=== PATIENT | male | born 1950 | race Caucasian/White ===

== ENCOUNTER 2018-08-27 08:43 | Inpatient (IN) | payer OTHER, MEDICARE ==
[2018-08-20 11:05] LABS: BILIRUBIN,URINE NEGATIVE (NEGATIVE); BLOOD, URINE TRACE (NEGATIVE); CLARITY/URINE CLEAR (CLEAR); COLOR,URINE YELLOW (YELLOW); GLUCOSE,URINE NEGATIVE (NEGATIVE); KETONES,URINE NEGATIVE (NEGATIVE); LEUKOCYTE ESTERASE ,URINE NEGATIVE (NEGATIVE); NITRITE, URINE NEGATIVE (NEGATIVE); PH,URINE 5.5 (5.0-8.0); PROTEIN URINE NEGATIVE (NEGATIVE)
[2018-08-20 11:09] LABS: BASOPHILS % (AUTO) 0.3 % (0.0-2.0); EOSINOPHILS # (AUTO) 0.3 K/uL (0.0-0.4); HEMATOCRIT 43.9 % (36-54); HEMOGLOBIN 14.4 g/dL (14.0-18.0); LYMPHOCYTES # (AUTO) 1.1 K/uL (1.0-5.5); LYMPHOCYTES % (AUTO) 16.5 % (20.5-51.5); MEAN CORPUSCULAR HEMOGLOBIN 30 pg (27-31); MEAN CORPUSCULAR HGB CONC 33 % (32-36); MEAN CORPUSCULAR VOLUME 92 fL (79.0-98.0); MONOCYTES # (AUTO) 0.4 K/uL (0.0-1.0); MONOCYTES % (AUTO) 6.9 % (1.7-9.3); NEUTROPHILS # (AUTO) 4.6 K/uL (1.8-7.7); NEUTROPHILS % (AUTO) 71.3 % (40.0-70.0); PLATELET COUNT (AUTO) 146 K/uL (130-430); RED BLOOD CELL COUNT(AUTO) 4.78 MIL/uL (4.2-6.2); RED CELL DISTRIBUTION WIDTH 11.9 % (9.0-15.0); WHITE BLOOD COUNT (AUTO) 6.4 K/uL (4.8-10.8)
[2018-08-20 11:27] LABS: BACTERIA,URINE FEW /HPF (None Seen); RBC,URINE 0-3 /HPF (0-3); WBC,URINE 0-3 /HPF (0-3)
[2018-08-20 11:28] LABS: MUCUS,URINE None Seen /LPF (None Seen)
[2018-08-20 11:36] LABS: CALCIUM 9.4 mg/dL (8.4-11.0); CREATININE 1.05 mg/dL (0.55-1.30)
[~2018-08-27] VITALS: Ht 182.9 cm; Wt 104.3 kg
[~2018-08-27 08:43] MED LIST: COR6.25 PO; LIP20 PO; LOSA1TAB40 PO; METF1000 PO; TAMS-11 PO
[2018-08-27] MEDS ORDERED: CEFAZOLIN 2 GM IVPB PREMIX 50 ML IV ONE (09:00)
[2018-08-27] MEDS ORDERED: POLYMYXIN 500,000/BACIT.10,000 UNITS in NS IRR 1 L IR ONE (09:10)
[2018-08-27] MEDS ORDERED: DULA0.75 SUBCUT (10:08)
[2018-08-27] MEDS ORDERED: NAPR220C15 PO (10:25)
[2018-08-27] MEDS ORDERED: MET10 PO (10:59)
[2018-08-27] MEDS: VANCOMYCIN HCL 1 GM/NS PREMIX 250 ML IV ONE ×2 (11:11→11:30)
[2018-08-27] MEDS ORDERED: SEVOFLURANE 15 MIN GAS INH ONE (11:30)
[2018-08-27] MEDS ORDERED: ROPIVACAINE HCL/PF 0.2% (NAROPIN) 200 ML PLAST..BAG EP ONE (11:30)
[2018-08-27] MEDS ORDERED: MIDAZOLAM HCL 5 MG/5 ML VIAL IVP ONE (11:30)
[2018-08-27] MEDS ORDERED: LR 1,000 ML IV.SOLN IV ONE (11:30)
[2018-08-27] MEDS ORDERED: fentaNYL CITRATE 250 MCG/5 ML AMP IV ONE (11:30)
[2018-08-27] MEDS ORDERED: DEXAMETHASONE SOD PHOSPHATE 4 MG/ML VIAL IVP ONE (11:30)
[2018-08-27] MEDS ORDERED: ROPIVACAINE HCL/PF 5 MG/ML 0.5% 30 ML VIAL INJ ONE (11:30)
[2018-08-27] MEDS ORDERED: ONDANSETRON HCL 4 MG/2 ML VIAL IVP ONE (11:30)
[2018-08-27] MEDS ORDERED: PROPOFOL 200MG/ 20ML VIAL (DIPRIVAN) IV ONE (11:30)
[2018-08-27] MEDS ORDERED: ROCURONIUM BROMIDE 10 MG/ML (ZEMURON) IV ONE (11:30)
[2018-08-27] MEDS ORDERED: TRANEXAMIC ACID 1,000 MG/10 ML VIAL IV ONE (11:30)
[2018-08-27] MEDS ORDERED: KETOROLAC TROMETHAMINE 30 MG VIAL IVP ONE (11:30)
[2018-08-27] MEDS ORDERED: ROPIVACAINE 0.2% 100 ML INJ SCH (12:44)
[2018-08-27] MEDS ORDERED: LR 1,000 ML IV SCH (12:44)
[2018-08-27] MEDS ORDERED: HYDROmorphone 2 MG/ML VIAL IVP PRN ×2 (12:45)
[2018-08-27] MEDS ORDERED: MEPERIDINE HCL/PF 25 MG/ML DISP.SYRIN IVP PRN (12:45)
[2018-08-27] MEDS ORDERED: HYDROcodone/ACETAMIN 10-325 MG TAB PO PRN ×2 (12:45)
[2018-08-27] MEDS ORDERED: HYDROmorphone 1 MG INJ. 1 MG/ML AMPUL IVP PRN (12:45)
[2018-08-27] MEDS: D5/0.45 NS 1,000 ML IV SCH ×2 (14:43→18:14)
[2018-08-27] MEDS ORDERED: ONDANSETRON HCL 4 MG/2 ML VIAL IVP PRN (14:45)
[2018-08-27] MEDS ORDERED: DIPHENHYDRAMINE HCL 25 MG CAPSULE PO PRN (14:45)
[2018-08-27] MEDS ORDERED: HYDROmorphone 2 MG/ML VIAL ONE (15:56)
--- NOTE | 2018-08-27 16:10 | NUR ---
ADMIT NOTE Received pt from ER to the floor with a diagnosis of []. Admission process initiated. patient oriented to pain management, safety and call light-teach back done. Addendum: 08/27/18 at 1633 by Ha Back RN DID NOT SAVE ACCURATELY PATIENT RECEIVED FROM PACU S/P RIGHT TKA.
[2018-08-27 16:15] VITALS: BP_SYST 123
--- NOTE | 2018-08-27 16:21 | NUR ---
CONSULT MEDICAL MANAGEMENT RTKA DR TAPIA [phone] S/W [facility] OFFICE
[2018-08-27 17:16] VITALS: BP_SYST 110
--- NOTE | 2018-08-27 17:20 | NUR ---
Initial Note patient resting in bed, awake and alert, denies pain at this time, at bedside, polar ice and srivastava in place, IV site remains patent, educated patient and family on plan of care and use of call light for assistance, verbalized understanding, safety precautions remain in place, will continue to monitor
[2018-08-27] MEDS ORDERED: TRANEXAMIC ACID 1,000 MG in NS 50 ML IV ONE (17:45)
[2018-08-27] MEDS: KETOROLAC TROMETHAMINE 15 MG VIAL IVP SCH ×2 (18:09→23:14)
--- NOTE | 2018-08-27 18:10 | NUR ---
Medication Administration educated patient and regarding meds, verbalized understanding, IV site remains patent, educated on plan of care, verbalized understanding, educated patient and family on use of call light for assistance, verbalized understanding, safety precautions remain in place, will continue to monitor
--- NOTE | 2018-08-27 18:15 | NUR ---
Incentive Spirometer educated patient on use of IS, verbalized understanding, was able to reach 3000 mL, tolerated well, educated on frequency of use, verbalized understanding, left within reach
[2018-08-27 18:16] VITALS: BP_SYST 122
--- NOTE | 2018-08-27 19:12 | NUR ---
Closing Note patient resting in bed, awake and alert, denies pain at this time, IV site in tact, srivastava draining via gravity, safety precautions remain in place, bedside table and call light within reach, endorsed to overnight houseperson nurse
[2018-08-27] MEDS ORDERED: INSULIN REGULAR, HUMAN 100 UNITS/ML, 10 ML VIAL (novoLIN R) SUBCUT PRN (19:15)
[2018-08-27] MEDS ORDERED: DEXTROSE 50% JECT 50 ML DISP.SYRIN IVP PRN (19:15)
--- NOTE | 2018-08-27 19:30 | NUR ---
Initial Notes Received handoff report from offgoing nurse at the bedside. Patient is awake and alert, resting comfortably in bed. No SOB, no acute distress, no signs of pain or facial grimacing noted at this time. IV site intact, dressing clean and dry, currently infusing IVF at the ordered rate, see eMAR for details. Able to wiggle toes, good pedal pulses, no pain to the right knee. Hemovac to the right knee with 100ml output, red blood. Polar care to the right knee. On Q Pump to the right knee, running Naropin @8ml/hr. Trapeze available for the patient to use. Plexipulse to both feet. Bed is locked, in the lowest position, 2x side rails up, bed alarm is on. Call light is within reach. Encouraged patient to call for assistance. Explained plan of care to the patient. Patient verbalizes understanding at this time. Will continue with plan of care.
[2018-08-27] MEDS ORDERED: ZOLPIDEM TARTRATE 5 MG TABLET PO PRN (19:45)
--- NOTE | 2018-08-27 19:45 | NUR ---
MD ROUNDS Dr. Bennett is in the unit, he saw the patient and answered all questions / concerns at this time. Dr. Bennett to put new orders.
[2018-08-27 20:00] VITALS: BP_SYST 126
--- NOTE | 2018-08-27 20:30 | NUR ---
INCENTIVE SPIROMETER Use of IS was reviewed with patient and he demonstrated proper usage. He inspired 4000 ml.
[2018-08-27] MEDS: SENNOSIDES 8.6 MG TABLET PO SCH (20:51)
[2018-08-27] MEDS: CARVEDILOL 6.25 MG TABLET (COREG) PO SCH (20:52)
[2018-08-27] MEDS: METHADONE HCL 10 MG TABLET PO SCH (20:53)
--- NOTE | 2018-08-27 21:00 | NUR ---
Polar care refilled with more ice as needed. Patient is not complaining of any knee pains at this time. Call light within reach. Encouraged patient to call for assistance.
--- NOTE | 2018-08-27 21:35 | NUR ---
DR. PACE S/W Dr. Pace. He called to inquired about patient and he was updated on the patient's condition. He said he will be in at 7am tomorrow.
[2018-08-27] MEDS ORDERED: LORATADINE 10 MG TABLET PO SCH (22:30)
--- NOTE | 2018-08-28 | NUR ---
NOTE Patient was resting w/ eyes closed and connected to CPAP. He was awakened for due medications, V/S, and neurochecks. Patient was educated on medication side effects and he verbalized understanding. He requested an additional blanket, and it was provided. Lights turned off per patient request. No further needs, will monitor.
[2018-08-28 00:24] VITALS: BP_SYST 127
--- NOTE | 2018-08-28 02:18 | NUR ---
NOTE Patient is resting, with eyes closed, and CPAP is on. Symmetrical rise and fall of chest. Polar pack has ice and IVF infusing as ordered.
[2018-08-28] MEDS: D5/0.45 NS 1,000 ML IV SCH ×3 (02:42→21:07)
--- NOTE | 2018-08-28 04:10 | NUR ---
NOTE Patient resting w/eyes closed; momentarily awakened for neurovascular assessment. CPAP removed at patient's request. Presently denies pain. Ice was added to polar pack. No further needs. Call light near. Will monitor.
[2018-08-28] MEDS: KETOROLAC TROMETHAMINE 15 MG VIAL IVP SCH (05:55)
[2018-08-28 06:24] LABS: EOSINOPHILS % (AUTO) 0.1 % (0.0-4.0); HEMATOCRIT 38.4 % (36-54); LYMPHOCYTES # (AUTO) 0.8 K/uL (1.0-5.5); LYMPHOCYTES % (AUTO) 6.4 % (20.5-51.5); MEAN CORPUSCULAR HEMOGLOBIN 31 pg (27-31); MEAN CORPUSCULAR HGB CONC 34 % (32-36); MEAN CORPUSCULAR VOLUME 91 fL (79.0-98.0); MONOCYTES % (AUTO) 7.7 % (1.7-9.3); NEUTROPHILS # (AUTO) 10.9 K/uL (1.8-7.7); NEUTROPHILS % (AUTO) 85.8 % (40.0-70.0); PLATELET COUNT (AUTO) 130 K/uL (130-430); RED CELL DISTRIBUTION WIDTH 11.6 % (9.0-15.0); WHITE BLOOD COUNT (AUTO) 12.7 K/uL (4.8-10.8)
--- NOTE | 2018-08-28 06:46 | NUR ---
CLOSING NOTE Patient resting. [facility] has ice, On-Q-pump at 8 ml/hr, plexipulse to bilateral feet, heel on pillow support, Hemovac was emptied. IV fluids infusing as ordered via patent IV. Juares catheter drainage bag to gravity, no dependent loops. Needs met throughout shift. Will endorse care to oncoming nurse.
[2018-08-28 06:47] LABS: CALCIUM 8.3 mg/dL (8.4-11.0); CREATININE 1.01 mg/dL (0.55-1.30); POTASSIUM 3.8 mmol/L (3.5-5.1)
--- NOTE | 2018-08-28 07:25 | NUR ---
AM NOTES: PATIENT AWAKE DURING ROUNDS.RIGHT KNEE DRESSING CLEAN AND DRY.ATTACHED TO [facility] CARE WITH HEMOVAC RIGHT KNEE ,REDDISH COLOR IN MODERATE AMOUNT.NEURO PATEL WITH IN NORMAL LIMIT. ON Q PUMP AT 8CC/H,INTACT. CALL LIGHT WITH IN REACH. BED LOCKED AT LOWEST POSITION. CONTINUE TO MONITOR.
[2018-08-28 08:21] VITALS: BP_SYST 114
[2018-08-28] MEDS ORDERED: NON-FORMULARY MEDICATION (Losartan/Hctz* (Losartan-Hctz 100-25 Mg Tab*) 1 EACH) PO SCH (09:00)
[2018-08-28] MEDS ORDERED: MULTIVITAMINS TAB 1 TABLET PO SCH (09:00)
[2018-08-28] MEDS ORDERED: METHADONE HCL 10 MG TABLET PO SCH (09:00)
[2018-08-28] MEDS: metFORMIN HCL 500 MG TABLET PO SCH ×2 (09:40→17:58)
[2018-08-28] MEDS: CARVEDILOL 6.25 MG TABLET (COREG) PO SCH ×2 (09:40→20:59)
[2018-08-28] MEDS: ATORVASTATIN 20 MG TABLET PO SCH (09:41)
[2018-08-28] MEDS: HYDROCHLOROTHIAZIDE 25 MG TABLET (HCTZ) PO SCH (09:41)
[2018-08-28] MEDS: ASCORBIC ACID 500 MG TABLET PO SCH ×2 (09:42→20:59)
[2018-08-28] MEDS: TAMSULOSIN HCL 0.4 MG CAP PO SCH (09:42)
[2018-08-28] MEDS: LOSARTAN POTASSIUM 50 MG TABLET (COZAAR) PO SCH (09:42)
[2018-08-28] MEDS: FERROUS SULFATE 140 MG TABLET.ER PO SCH (09:43)
[2018-08-28] MEDS: MULTIVITAMINS TAB 1 TABLET PO SCH (09:43)
[2018-08-28] MEDS: RIVAROXABAN 10 MG TABLET PO SCH (09:49)
--- NOTE | 2018-08-28 10:30 | NUR ---
INCENTIVE SPIROMETRY: PATIENT DID INCENTIVE SPIROMETRY UP TO 4000ML INSTRUCTED.
--- NOTE | 2018-08-28 10:35 | NUR ---
Nutrition Update Mario Scale 16 noted. Pt admitted for unilateral post-traumatic osteoarthritis, R knee. Diet: [facility] BMI: 31.2 kg/m2 RD to follow per nutrition care standards.
--- NOTE | 2018-08-28 10:50 | NUR ---
RN ROUNDING: Patient sitting on the recliner chair,both lower extremities elevated.On q pump intact,with hemovac,reddish color drainage. Right knee dressing clean and dry. Denies any pain this time.
--- NOTE | 2018-08-28 10:51 | NUR ---
1. CALLED DR. PACE'S OFFICE AND GAVE A VERBAL PROGRESS REPORT WITH THE MULTI DISCIPLINED LANGUAGE ANALYST. (RIGHT KNEE PROM 2-95 FLEXION). GAIT, TRANSFERS, AND STAIR CLIMBING CONTACT GUARD ASSISTANCE. SEE THE ACUTE DAILY FLOW SHEET FOR COMPLETE NOTES. 2. PLEASE SEE THE PATIENT'S PHYSICAL MEDICAL CHART AT THE NURSING STATION FOR YESTERDAY'S PT INITIAL EVALUATION, 08/27/17, WHICH WAS DOCUMENTED ON THE "DOWN TIME FORM."
--- NOTE | 2018-08-28 11:11 | NUR ---
blood sugar: blood sugar taken,no insulin coverage per sliding scale.
--- NOTE | 2018-08-28 11:48 | NUR ---
Case mgt: Met w/pt at bedside--lives in 2 story home w/--17 steps noted-bedroom is upstairs-pt indicates he did stair training today with our PT and feels confident he can manage stair-climbing daily at home- will be able to help him. Pt was offered HH list-he wants to use whichever company Dr. Francis works with--will f/u for dc planning needs-My business card given to pt-I called Dr. Francis's office at 1130 requesting call back from Dr. Francis for dc planning orders--Choice of vendor form explained to pt -getting pt signature-NAVDEEP MARCOS
--- NOTE | 2018-08-28 12:38 | NUR ---
rn rounds: family at the bedside. lunch served,patient started eating his lunch.
[2018-08-28 12:47] VITALS: BP_SYST 122
--- NOTE | 2018-08-28 13:58 | NUR ---
Case mgt: Rec'd orders for FWW and Home Health--I faxed DME order to Dr. Francis's office for signature and he is aware he needs to sign and fax back to us to expedite FWW order (pt is Medicare)--Jeri, dc coordinator, is faxing home health referral to [facility]--anticipate dc home 08/29/[address] Francis-Dr. Francis requested for Dr. Chavez (anesthesiologist) to fill On-Q pump prior to dc home tomorrow--nurse Heather updated and she will check with Dr. Francis, as she says the On-Q pump has large volume fill already--NAVDEEP MARCOS
[2018-08-28] MEDS: HYDROcodone/ACETAMIN 7.5-325 MG TAB PO PRN (14:13)
--- NOTE | 2018-08-28 14:16 | NUR ---
pain meds: c/o post op pain and due po pain meds given per request. no adverse reaction noted this time.
[2018-08-28 16:17] VITALS: BP_SYST 132
--- NOTE | 2018-08-28 16:30 | NUR ---
IVF RATE: IVF RATE DECREASED TO 50CC/H PER DR TAPIA DURING ROUNDS.
[2018-08-28] MEDS: ACETAMINOPHEN 325 MG TABLET PO PRN (16:56)
--- NOTE | 2018-08-28 16:57 | NUR ---
TEMPERATURE: RECHECKED LYNX=460.7 DEGREES MD PADMINI AWARE WITH ORDERS GIVE TYLENOL 650MG PO Q 4HRS PRN FOR TEMPERATURE ABOVE 100 DEGREES FAHRENHEIT.
--- NOTE | 2018-08-28 17:57 | NUR ---
RECHECKED TEMP: TEMP=99.8 FAH.COOLING MEASURES RENDERED BY ENTRY LEVEL RECRUITER.
--- NOTE | 2018-08-28 18:27 | NUR ---
END OF SHIFT: PATIENT WITH MINIMAL PAIN.RIGHT KNEE DRESSING CLEAN AND DRY. HEMOVAC AND ON Q PUMP INTACT.POLAR CARE CONNECTED TO RIGHT KNEE. MI IN SITU. CALL LIGHT WITH IN REACH. BED LOCKED AT LOWEST POSITION. NEURO PATEL WITH IN NORMAL LIMIT. CONDITION GUARDED.
--- NOTE | 2018-08-28 19:30 | NUR ---
OPENING NOTE Received patient awake, AOx4, resting supine in bed, no sign of distress noted. On-Q-pump at 8 ml/hr, plexipulse to bilateral feet, heel on pillow support, Hemovac to right knee. Polar care connected to patient's knee. IV fluids infusing as ordered via patent IV. Juares catheter drainage bag to gravity, no dependent loops. Patient reports mild pain. Only has bed sheet and requesting a blanket. Bed is locked to lowest position, 2x side rails, bed alarm is on and call light w/in reach. Updated board and reviewed plan of care.
[2018-08-28 20:00] VITALS: BP_SYST 149
[2018-08-28] MEDS: SENNOSIDES 8.6 MG TABLET PO SCH (20:56)
[2018-08-28] MEDS: HYDROcodone/ACETAMIN 10-325 MG TAB PO PRN (20:57)
[2018-08-28] MEDS: METHADONE HCL 10 MG TABLET PO SCH (20:58)
--- NOTE | 2018-08-28 21:00 | NUR ---
NOTE: TEMP / PAIN MEDS Patient reported severe pain and requested pain medication. Temperature was 100.4. Patient given [place] for severe pain as ordered. Held additional Tylenol medication for fever, due administration of [place]. Will reassess pain and temperature.
--- NOTE | 2018-08-28 21:15 | NUR ---
NOTE Fingerstick accucheck was done with a result of 131, no insulin due. Due medications administered and explained side effects, patient verbalized understanding. Reviewed purpose / use of Incentive Spirometer and patient demonstrated inspiration to 4000 ml. Safety precautions in place and call light near. Will monitor.
--- NOTE | 2018-08-28 22:00 | NUR ---
Pain / Fever follow up Reassessed temperature and presently 99.6. Patient reports pain decreased to 2/10.
--- NOTE | 2018-08-28 22:00 | NUR ---
CPAP Patient removed CPAP, stating he does not want it tonight since it doesn't feel like it is making a difference. I let him know RT can adjusted/assess the CPAP and he insisted that he will be fine w/out it. I notified RT. Patient requested the lights off and had no further needs. Call light is w//in reach, will monitor.
--- NOTE | 2018-08-29 00:10 | NUR ---
NOTE Patient resting, no sign of distress noted. Patient reports pain to knee is 4/10. He declined medication for moderate pain, stating it is tolerable. Neuro vascular checks done. Lights are off per patient request. Will monitor.
[2018-08-29 00:26] VITALS: BP_SYST 129
[2018-08-29] MEDS: HYDROcodone/ACETAMIN 7.5-325 MG TAB PO PRN (01:05)
--- NOTE | 2018-08-29 01:07 | NUR ---
NOTE Patient reported moderate pain (4.5/10) to right knee. He was given medication for moderate pain as ordered. No further needs, will monitor.
--- NOTE | 2018-08-29 02:00 | NUR ---
NOTE Patient is resting w/ eyes closed and snoring; no sign of distress. Safety precautions in place and call light w/in reach.
--- NOTE | 2018-08-29 04:10 | NUR ---
NOTE Patient resting w/ eyes closed and momentarily awakened for neurovascular checks. Filled Polar care with ice. No further needs. Will monitor.
[2018-08-29] MEDS: HYDROcodone/ACETAMIN 10-325 MG TAB PO PRN ×2 (06:14→10:17)
--- NOTE | 2018-08-29 07:35 | NUR ---
closing note Patient resting. [facility] has ice, On-Q-pump at 8 ml/hr, plexipulse to bilateral feet, heel on pillow support, Hemovac was removed by Dr. Francis. IV fluids infusing as ordered via patent IV. Juares catheter removed. Assisted Dr. Francis with first dressing change. Needs met throughout shift. Endorsed care to oncoming nurse.
--- NOTE | 2018-08-29 07:35 | NUR ---
AM NOTES: PATIENT AWAKE DURING ROUNDS. ORTHO JUST CAME AND DID DRESSING CHANGED. RIGHT KNEE DRESSING CLEAN AND DRY,ATTACHED TO [facility].RIGHT HEEL UNDERNEATH PILLOW WITH FLEXI PULSE ON AND SCD'S LEFT LE.ON Q PUMP AT 8CC/H INTACT. WITH PAIN 4/10 LEVEL.IVF AT LEFT HAND IN PLACE.NEURO PATEL WITH IN NORMAL LIMIT. CALL LIGHT WITH IN REACH. BED LOCKED AT LOWEST POSITION.CONDITION GUARDED.
[2018-08-29 07:43] LABS: BASOPHILS % (AUTO) 0.2 % (0.0-2.0); EOSINOPHILS # (AUTO) 0.2 K/uL (0.0-0.4); EOSINOPHILS % (AUTO) 1.6 % (0.0-4.0); HEMATOCRIT 39.3 % (36-54); HEMOGLOBIN 13.4 g/dL (14.0-18.0); LYMPHOCYTES # (AUTO) 1.2 K/uL (1.0-5.5); MEAN CORPUSCULAR HEMOGLOBIN 31 pg (27-31); MEAN CORPUSCULAR HGB CONC 34 % (32-36); MEAN CORPUSCULAR VOLUME 92 fL (79.0-98.0); MONOCYTES # (AUTO) 1.1 K/uL (0.0-1.0); MONOCYTES % (AUTO) 11.1 % (1.7-9.3); NEUTROPHILS # (AUTO) 7.3 K/uL (1.8-7.7); NEUTROPHILS % (AUTO) 75.1 % (40.0-70.0); PLATELET COUNT (AUTO) 137 K/uL (130-430); RED BLOOD CELL COUNT(AUTO) 4.29 MIL/uL (4.2-6.2); RED CELL DISTRIBUTION WIDTH 11.9 % (9.0-15.0); WHITE BLOOD COUNT (AUTO) 9.8 K/uL (4.8-10.8)
[2018-08-29 07:45] VITALS: BP_SYST 141
[2018-08-29] MEDS: ACETAMINOPHEN 325 MG TABLET PO PRN (07:54)
[2018-08-29 07:57] LABS: CALCIUM 8.5 mg/dL (8.4-11.0); CREATININE 1.07 mg/dL (0.55-1.30); POTASSIUM 3.6 mmol/L (3.5-5.1)
[2018-08-29] MEDS: metFORMIN HCL 500 MG TABLET PO SCH (08:31)
[2018-08-29] MEDS: LOSARTAN POTASSIUM 50 MG TABLET (COZAAR) PO SCH (08:32)
[2018-08-29] MEDS: HYDROCHLOROTHIAZIDE 25 MG TABLET (HCTZ) PO SCH (08:32)
[2018-08-29] MEDS: MULTIVITAMINS TAB 1 TABLET PO SCH (08:33)
[2018-08-29] MEDS: CARVEDILOL 6.25 MG TABLET (COREG) PO SCH (08:33)
[2018-08-29] MEDS: ATORVASTATIN 20 MG TABLET PO SCH (08:33)
[2018-08-29] MEDS: ASCORBIC ACID 500 MG TABLET PO SCH (08:33)
[2018-08-29] MEDS: TAMSULOSIN HCL 0.4 MG CAP PO SCH (08:33)
[2018-08-29] MEDS: FERROUS SULFATE 140 MG TABLET.ER PO SCH (08:41)
--- NOTE | 2018-08-29 09:36 | NUR ---
PHYSICAL THERAPY PROGRESS: SPOKE WITH DR. PACE. SEATED AROM KNEE FLEXION 85 DEGREES; PROM 4-90 DEGREES. PAIN WITH WEIGHT BEARING IS 5-6/10. STAIRS X 20 SBA; GAIT WITH THE FWW X 200+ FT. SBA. PLAN: TREAT SECOND SESSION BEFORE GOING HOME TODAY.
--- NOTE | 2018-08-29 10:17 | NUR ---
PAIN MEDS: C/O POST OP PAIN.DUE PO PAIN MEDS GIVEN PER REQUEST.PATIENT SITTING ON THE RECLINER CHAIR,BILATERAL LE ELEVATED ,RIGHT HEEL WITH PILLOW UNDERNEATH.NO COMPLICATIONS NOTED THIS TIME.
[2018-08-29] MEDS: RIVAROXABAN 10 MG TABLET PO SCH (10:18)
[2018-08-29 10:38] VITALS: BP_SYST 134
--- NOTE | 2018-08-29 10:48 | NUR ---
DC ORDER: DR TAPIA CAME AND SAW THE PATIENT,WITH ORDERS DC HOME WITH HOME HEALTH,F/U WITH DR PACE AND HIS PCP NEXT WEEK.PRESCRIPTIONS ALREADY GIVEN TO PATIENT BY DR PACE THIS MORNING.
--- NOTE | 2018-08-29 11:00 | NUR ---
Voided: Patient voided after srivastava was removed.
--- NOTE | 2018-08-29 11:27 | NUR ---
blood sugar: blood sugar taken,no insulin coverage per sliding scale.
[2018-08-29 12:01] VITALS: BP_SYST 134
--- NOTE | 2018-08-29 12:05 | NUR ---
Discharge Planning: [facility] faxed referral to [facility] ( f [phone] p [phone]) per Taylor Patient accepted. [facility] followed up with [facility] (f [phone] p [phone]) order is being reviewed per Devika. DCP to follow up. Addendum: 08/29/18 at 1349 by Jeri Armas DP [facility] ( f [phone] p [phone]) was used in error by [facility]. [facility] faxed to [facility] (f [phone] p [phone]) [facility] received a call by Dr Francis to please correct. Addendum: 08/29/18 at 1429 by Jeri Armas DP [facility] (f [phone] p [phone]) per Mariana accepted pt she is calling pt. [facility] (f [phone] p [phone]) per Faye the patients Medicare will not cover simple DME. DCP will inform patient. Addendum: 08/29/18 at 1438 by Jeri Armas DP DCP gave 2 options for obtaining FWW from [employer] - [employer] [phone] and [facility] [phone].
[2018-08-29] MEDS ORDERED: HYDR-2489 PO (12:43)
[2018-08-29] MEDS ORDERED: RIVA10TA PO (13:36)
--- NOTE | 2018-08-29 14:10 | NUR ---
Dc Notes: Transitional care documents and prescriptions given to patient by ortho surgeon this morning.Patient and understands the dc instructions.Home health PT/dme was arrange by [facility] and there is one dme not covered by his insurance- aware.Spoke with Dr Francis with additional orders made,stopped naproxyn po and patient to pass by his office to pick his fww. iv removed,dry gauze applied,no bleeding noted.Voiding freely. To keep on Q pump until sunday08-30-18 per anesthesiologist and dc on q pump tomorrow as ordered,instructions how to remove on q pump given and patient's sravani understands it.Patient was accompanied home by his in stable condition.
== END 2018-08-29 14:10 | disposition home health service (06) | DRG 470 ==
LOC: SMU 08:43
PROVIDERS: ADMIT Orthopaedic Surgery; ATTEND Orthopaedic Surgery
PROC: 0SRC0J9 Replacement of Right Knee Joint with Synthetic Substitute, Cemented, Open Approach (ICD-10-PCS; principal; 2018-08-27 11:30)
DX: M17.11 Unilateral primary osteoarthritis, right knee (principal); M87.851 Other osteonecrosis, right femur; E11.9 Type 2 diabetes mellitus without complications; I10 Essential (primary) hypertension; E78.5 Hyperlipidemia, unspecified; N40.0 Benign prostatic hyperplasia without lower urinary tract symptoms; G25.81 Restless legs syndrome; Z79.899 Other long term (current) drug therapy
CPT/HCPCS: 36415; 71046-TC; 73560-TC; 80048; 81000-TC; 82306; 82962; 83036; 85025; 86886; 86900; 86901; 87081; 88305; 88311; 94010; 94660; 97110-GP; 97116-GP; 97530-GP; C1713; C1776; J0690; J1100; J1170; J1815; J1885; J2250; J2405; J2704; J2795; J3010; J3370; J3490; J7120; L1830